=== PATIENT | female | born 1975 | race Caucasian/White ===

== ENCOUNTER 2016-12-10 08:38 | Emergency (ER) | payer SELFPAY ==
[~2016-12-10] VITALS: Ht 162.6 cm; Wt 72.1 kg
[~2016-12-10 08:38] MED LIST: DIAZ10TA PO; MORP15TA PO; PHEN100T90 PO; PROP60CA PO; SERT25TA PO; SUBTEX; SUBUTEX
[2016-12-10] MEDS ORDERED: ONDANSETRON 2MG/ML, 2ML IVPush ONE ×3 (09:30→11:30)
[2016-12-10] MEDS ORDERED: SODIUM CHLORIDE 0.9% 1,000ML IV ONE (09:30)
[2016-12-10 10:09] LABS: BLOOD UREA NITROGEN 16 mg/dL (7-18)
[2016-12-10 10:15] LABS: ASPARTATE AMINO TRANSFERASE 19 U/L (15-37)
[2016-12-10] MEDS ORDERED: ONDANSETRON 2MG/ML, 2ML ONE ×2 (10:18→11:26)
[2016-12-10 10:19] VITALS: BP 118/86
== END 2016-12-10 11:58 | disposition home or self-care (01) ==
LOC: ED 10:24
DX: R11.2 Nausea with vomiting, unspecified (principal); E86.0 Dehydration; R10.11 Right upper quadrant pain
CPT/HCPCS: 36415; 76770; 80053; 81001; 83690; 84703; 85025; 87086; 96361; 96374; 96376; 99285; J2405; J7030

== ENCOUNTER 2020-11-14 23:12 | Emergency (ER) | payer SELFPAY ==
[~2020-11-14] VITALS: Ht 162.6 cm; Wt 87.5 kg
[2020-11-14 23:18] VITALS: BP 139/81
--- NOTE | 2020-11-14 23:21 | NUR ---
PT BIB [facility], C/O FALL TO GROUND, IN HOME. PT C/O PAIN TO LEFT HIP, KNEE, HAND AND LOWER BACK. BROUGHT IN ON BACKBOARD FOR EASY TRASNFER. REMOVED AFTER PT PLACED IN BED. PT RECEIVED KETAMINE 25MG ENROUTE VIA EMS FOR PAIN.
--- NOTE | 2020-11-15 | NUR ---
PT BACK FROM [facility] DEPT. CALM AND RESTING.
[2020-11-15] MEDS ORDERED: KETOROLAC 30 MG/1 ML ONE (00:52)
[2020-11-15] MEDS ORDERED: METHOCARBAMOL 750 MG TABLET ONE (00:52)
[2020-11-15] MEDS ORDERED: KETOROLAC 30 MG/1 ML IM ONE (01:00)
[2020-11-15] MEDS ORDERED: METHOCARBAMOL 750 MG TABLET PO ONE (01:00)
--- NOTE | 2020-11-15 01:36 | NUR ---
WRIST SPLINT APPLIED BY EMT STAFF, AND ICE PACK PROVIDED FOR KNEE, AND MARITO BANDAGE TO KNEE. PT GIVEN F/U AND D/C INSTRUCTIONS AND SHE V/U.
== END 2020-11-15 01:38 | disposition home or self-care (01) ==
LOC: ED 11-15 00:46
DX: G89.11 Acute pain due to trauma (principal); M54.5 Low back pain; M54.6 Pain in thoracic spine; M43.06 Spondylolysis, lumbar region; M25.532 Pain in left wrist; M25.552 Pain in left hip; M25.562 Pain in left knee; J44.9 Chronic obstructive pulmonary disease, unspecified; W01.0XXA Fall on same level from slipping, tripping and stumbling without subsequent striking against object, initial encounter; Y93.89 Activity, other specified; Y92.099 Unspecified place in other non-institutional residence as the place of occurrence of the external cause; Y99.8 Other external cause status
CPT/HCPCS: 29125; 72072; 72110; 93005; 99284